=== PATIENT | female | born 1965 | race Caucasian/White ===

== ENCOUNTER 2016-07-04 08:33 | Emergency (ER) | payer OTHER ==
[~2016-07-04] VITALS: Ht 157.5 cm; Wt 55.8 kg
[~2016-07-04 08:33] MED LIST: ADVAIR 250/501 DISK IH; AMOXICILLIN500 MG PO; COLACE100 MG PO; HYDROCHLOROTH12.5 M3 PO; LISINOPRIL5 MG PO; PANTOPRAZOLE SO40 MG PO; PREPARATION H1 EAC4 PR; SINGULAIR10 MG PO; TYLENOL WITH C1 EACH PO; ULTRAM50 MG PO
[2016-07-04] MEDS ORDERED: MIRALAX255 GM PO (09:03)
[2016-07-04 09:17] VITALS: BP 146/95
== END 2016-07-04 09:17 | disposition home or self-care (01) ==
LOC: EME 08:33
DX: K64.9 Unspecified hemorrhoids (principal)
CPT/HCPCS: 99281; 99283